=== PATIENT | female | born 1950 | race Caucasian/White ===

== ENCOUNTER → 2017-01-13 | Outpatient (CLI) | payer MEDICARE | LOC: LAB 21:57 | DX: E03.9 Hypothyroidism, unspecified (principal); E78.2 Mixed hyperlipidemia | CPT/HCPCS: 80061; 84439; 84443 ==

== ENCOUNTER 2020-10-04 10:56 | Emergency (ER) | payer MEDICARE ==
[2020-10-04 11:36] LABS: HEMOGLOBIN 14.9 gm/dl (12.3-15.3); RED BLOOD COUNT 5.09 M/UL (4.00-5.10); WHITE BLOOD COUNT 5.7 K/UL (4.5-11.0)
[2020-10-04 12:06] LABS: BUN/CREATININE RATIO 19 (0-10)
== END 2020-10-04 15:00 | disposition home or self-care (01) ==
LOC: ER1 10:56
PROVIDERS: Emergency Medicine
DX: U07.1 COVID-19 (principal); I10 Essential (primary) hypertension; Z90.49 Acquired absence of other specified parts of digestive tract; Z90.710 Acquired absence of both cervix and uterus; Z90.89 Acquired absence of other organs; Z88.1 Allergy status to other antibiotic agents
CPT/HCPCS: 71045; 80053; 82550; 82553; 83874; 83880; 84484; 85025; 85379; 93005; 99285; M0239

== ENCOUNTER 2020-10-31 01:01 | Observation (INO) | payer MEDICARE ==
[~2020-10-31] VITALS: Ht 162.6 cm; Wt 77.1 kg
[2020-10-31 02:02] LABS: HEMOGLOBIN 14.3 gm/dl (12.3-15.3); RED BLOOD COUNT 4.87 M/UL (4.00-5.10); WHITE BLOOD COUNT 7.4 K/UL (4.5-11.0)
[2020-10-31 02:27] LABS: BUN/CREATININE RATIO 18 (0-10)
[2020-10-31] MEDS ORDERED: PROTONIX 40 MG40 M1 PO (16:23)
[2020-10-31] MEDS ORDERED: ASPIRIN EC81 MG PO (16:23)
[2020-10-31] MEDS ORDERED: ATORVASTATIN CA20 MG PO (17:51)
[2020-10-31] MEDS ORDERED: VASOTEC5 MG PO (18:43)
[2020-10-31] MEDS ORDERED: METOPROLOL SUCC25 MG PO (18:44)
[2020-10-31] MEDS ORDERED: ARMOUR THYROID300 MG PO (18:44)
[2020-10-31] MEDS ORDERED: DOTTI1 EAC1 TD (18:46)
[2020-10-31] MEDS ORDERED: ENALAPRIL-HCTZ1 EAC1 PO (18:47)
[2020-10-31] MEDS ORDERED: COLESTIPOL HCL1 GM PO (18:48)
== END 2020-10-31 19:32 | disposition home or self-care (01) ==
LOC: ER1 01:01 → CDU 03:45 → MED SURG 4 16:20
PROVIDERS: Physician Assistant; ADMIT Internal Medicine
DX: R07.89 Other chest pain (principal); I10 Essential (primary) hypertension; I25.10 Atherosclerotic heart disease of native coronary artery without angina pectoris; E03.9 Hypothyroidism, unspecified; U07.1 COVID-19; Z88.1 Allergy status to other antibiotic agents; Z79.899 Other long term (current) drug therapy
CPT/HCPCS: 71045; 78452; 80053; 80061; 81001; 82550; 82553; 83874; 83880; 84484; 85025; 85379; 85610; 85730; 93005; 93017; 96374; 99285; A9502; G0378; J2405; J2785; U0002

== ENCOUNTER 2020-11-05 12:01 | Observation (INO) | payer MEDICARE ==
[~2020-11-05] VITALS: Ht 162.6 cm; Wt 77.1 kg
[~2020-11-05 12:01] MED LIST: ARMOUR THYROID300 MG PO; ASPIRIN EC81 MG PO; ATORVASTATIN CA20 MG PO; COLESTIPOL HCL1 GM PO; DOTTI1 EAC1 TD; ENALAPRIL-HCTZ1 EAC1 PO; METOPROLOL SUCC25 MG PO; PROTONIX 40 MG40 M1 PO; VASOTEC5 MG PO
[2020-11-05 12:55] LABS: HEMOGLOBIN 14.4 gm/dl (12.3-15.3); RED BLOOD COUNT 4.91 M/UL (4.00-5.10); WHITE BLOOD COUNT 9.3 K/UL (4.5-11.0)
[2020-11-05 13:18] LABS: BUN/CREATININE RATIO 18 (0-10)
[2020-11-06 03:26] LABS: HEMOGLOBIN 13.4 gm/dl (12.3-15.3); RED BLOOD COUNT 4.63 M/UL (4.00-5.10); WHITE BLOOD COUNT 7.9 K/UL (4.5-11.0)
[2020-11-06 04:06] LABS: BUN/CREATININE RATIO 20 (0-10)
[2020-11-06] MEDS ORDERED: ISOSORBIDE MONO30 MG PO (15:10)
--- NOTE | 2020-11-06 18:21 | NUR ---
CARDIOLOGY OK'D PT FOR D/C AFTER ECHO REPORT, HOWEVER PT EXPERIENCING N/V. HAS BEEN GIVEN ZOFRAN AND NOTIFIED PT NEED FOR PHENEGRAN. PHENEGRAN GIVEN, 7UP, AND COLD RAGS. NO EMESIS WAS SEEN BY RN OR SEWAGE DISPOSAL WORKER. WCKAYLA. PT STATED THAT SHE CANNOT BE DISCHARGED FEELING THIS BAD. ECHO REPORT STILL NOT AVAILABLE.
--- NOTE | 2020-11-06 18:51 | NUR ---
SPOKE WITH DR BRANDT. PT HAS BEEN COVID + >30 DAYS. PT DOES NOT HAVE TO BE IN ISOLATION ACCORDING TO POLICY. OK WITH PT HAVING STANDARD PRECAUTIONS
--- NOTE | 2020-11-07 11:50 | NUR ---
1120 DISCHARGE INSTRUCTIONS GIVEN AND WENT OVER WITH PT. PT VERBALIZED UNDERSTANDING. PT DISCHARGED VIA OF AMBULATION. LEFT WITH PERSONAL BELONGINGS.
== END 2020-11-07 11:27 | disposition home or self-care (01) ==
LOC: ER1 12:01 → M/S 21:15
PROVIDERS: Physician Assistant; ADMIT Internal Medicine
DX: R07.89 Other chest pain (principal); U07.1 COVID-19; I10 Essential (primary) hypertension; E03.9 Hypothyroidism, unspecified; R94.39 Abnormal result of other cardiovascular function study; I25.10 Atherosclerotic heart disease of native coronary artery without angina pectoris; I08.1 Rheumatic disorders of both mitral and tricuspid valves; Z82.49 Family history of ischemic heart disease and other diseases of the circulatory system; Z88.1 Allergy status to other antibiotic agents; Z79.82 Long term (current) use of aspirin; Z79.899 Other long term (current) drug therapy
CPT/HCPCS: ECHO; 36415; 71045; 80048; 80053; 82550; 82553; 83690; 83874; 84484; 85025; 85379; 93005; 93306; 96374; 96375; 96376; 99285; G0378; J1650; J1885; J2270; J2405; J2550; U0002